=== PATIENT | male | born 1945 | race Caucasian/White ===

== ENCOUNTER 2019-02-20 08:01 | Emergency (ER) | payer OTHER, MEDICARE ==
[2019-02-20 08:32] LABS: HEMATOCRIT 48.7 % (39.0-50.0); HEMOGLOBIN 17.1 g/dl (14.0-18.0); IMMATURE GRANULOCYTES 0.6 % (0.0-5.0); MEAN CELL VOLUME 85.3 fL CALC (80.0-100.0); MEAN CORPUSCULAR HGB 29.9 pG CALC (26.0-32.0); MEAN CORPUSCULAR HGB CONC 35.1 g/L CALC (32.0-36.0); NEUT# 6.63 thou/uL (1.82-7.42); RED BLOOD COUNT 5.71 mill/uL (4.70-6.10); RED CELL DISTRI WIDTH 12.5 % (11.5-15.5)
[2019-02-20 08:53] LABS: ALBUMIN 4.6 g/dL (3.2-5.0); ALKALINE PHOSPHATASE 98 u/l (38-126); ANION GAP 20 (6-22 (CALC)); BILIRUBIN, TOTAL 0.9 mg/dL (0.0-1.4); BUN 25 mg/dL (8-23); BUN/CREATININE RATIO 27 (12-20 (CALC)); CARBON DIOXIDE 23 mmol/l (22-30); CHLORIDE 95 mmol/l (95-108); CREATININE 0.9 mg/dL (0.7-1.3); GFR > 60 ML/MIN (>=60 (CALC)); GFR FOR AFR.AMER. > 60 ML/MIN (>=60 (CALC)); POTASSIUM 3.8 mmol/l (3.5-5.1); SGOT/AST 31 u/l (19-48); SODIUM 135 mmol/l (137-146); TOTAL PROTEIN 7.8 g/dL (6.3-8.2)
[2019-02-20] MEDS ORDERED: METFORMIN500 M1 PO (10:32)
[2019-02-20 10:40] VITALS: BP 133/80
== END 2019-02-20 10:40 | disposition home or self-care (01) | DRG 639 ==
LOC: ED 08:01
PROVIDERS: Family Medicine
DX: E11.65 Type 2 diabetes mellitus with hyperglycemia (principal); Z79.84 Long term (current) use of oral hypoglycemic drugs